=== PATIENT | female | born 1970 | race African-American/Black ===

== ENCOUNTER 2020-02-15 12:09 | Emergency (ER) | payer SELFPAY ==
[~2020-02-15] VITALS: Ht 180.3 cm; Wt 148.8 kg
[2020-02-15 12:25] VITALS: BP 145/89
--- NOTE | 2020-02-15 13:13 | Emergency Room Report ---
History of Present Illness General Chief Complaint: Upper Respiratory Illness Source: Patient Present Illness HPI 49-year-old female with history of COPD and heavy tobacco smoker complaining of over 1 week of cough and congestion coupled with shortness of breath posttussive. Patient refuses chest x-ray. Patient reports green phlegm is coming now and is requesting to get cough syrup as well as albuterol antibiotics. Patient is afebrile, oxygenation within normal limits. Denies any chest pain at this time. Denies headache and dizziness, loss of taste, smell, abdominal pain, nausea vomiting diarrhea. Has not taken medication for symptom relief. Denies . 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 COVID-19 Screening: Negative COVID-19 COVID-19 Testing Source: [employer] Patient History Past Medical History: see triage record Past Surgical History: none Pertinent Family History: none Social History: Reports: smoking Last Menstrual Period: na Now: No Immunizations: UTD Reviewed Nursing Documentation: PMH: Agreed; PSxH: Agreed Nursing Documentation-PMH Past Medical History: No History, Except For Hx Asthma: Yes Hx COPD: Yes Review of Systems All Other Systems: negative except mentioned in HPI Physical Exam Vital Signs Date Time Temp Pulse Resp B/P (MAP) Pulse Ox O2 Delivery O2 Flow Rate FiO2 02/15/20 12:20 98.4 87 18 145/89 (107) 97 Room Air Sp02 EP Interpretation: reviewed, normal General Appearance: no apparent distress, alert, GCS 15, non-toxic Head: normocephalic, atraumatic Eyes: bilateral eye normal inspection, bilateral eye PERRL ENT: hearing grossly normal, normal pharynx, no angioedema, normal voice Neck: full range of motion, supple/symm/no masses Respiratory: chest non-tender, lungs clear, normal breath sounds, no rhonchi, speaking full sentences Cardiovascular #1: regular rate, rhythm, no edema Gastrointestinal: normal bowel sounds, non tender, soft, non-distended, no guarding, no rebound Genitourinary: no CVA tenderness Musculoskeletal: back normal Neurologic: alert, motor strength/tone normal, oriented x3, sensory intact, responsive, speech normal Psychiatric: judgement/insight normal, memory normal, mood/affect normal, no suicidal/homicidal ideation Skin: no rash Lymphatic: no adenopathy Medical Decision Making PA Attestation All diagnoses and treatment plans were reviewed and discussed with my supervising physician Dr. Cuellar Diagnostic Impression: Primary Impression: Upper respiratory infection Additional Impression: COPD (chronic obstructive pulmonary disease) ER Course 49-year-old female with history of COPD and heavy tobacco smoker complaining of over 1 week of cough and congestion coupled with shortness of breath posttussive. Patient refuses chest x-ray. Patient reports green phlegm is coming now and is requesting to get cough syrup as well as albuterol antibiotics. Patient is afebrile, oxygenation within normal limits. Denies any chest pain at this time. Denies headache and dizziness, loss of taste, smell, abdominal pain, nausea vomiting diarrhea. Has not taken medication for symptom relief. Denies . Patient also reports that she got tested for COVID a week ago and she was negative Ddx considered but are not limited to: bronchitis, PNA, URI viral, bacterial bronchitis Vital signs: are WNL, pt. is afebrile H&PE are most consistent with: Upper respiratory infection, COPD ORDERS: Azithromycin, albuterol, Phenergan with codeine, prednisone ED INTERVENTIONS: None required at this time. DISCHARGE: At this time pt. is stable for d/c to home. Will provide printed patient care instructions, and any necessary prescriptions. Care plan and follow up instructions have been discussed with the patient prior to discharge. Patient take medication as directed, follow primary doctor, if worsening symptoms return to the emergency room Last Vital Signs Date Time Temp Pulse Resp B/P (MAP) Pulse Ox O2 Delivery O2 Flow Rate FiO2 02/15/20 12:25 87 18 Room Air 02/15/20 12:25 98.4 145/89 97 Disposition: HOME, SELF-CARE Condition: Stable Scripts Promethazine HCl/Codeine (Prometh-Codein 6.25-10 mg/5 ml) 5 Ml Syrup 5 ML PO BID, #240 ML Prov: Bala Piper 02/15/20 Prednisone* (PREDNISONE*) 20 Mg Tablet 40 MG ORAL DAILY for 5 Days, #10 TAB Prov: Bala Piper 02/15/20 Azithromycin* (ZITHROMAX*) 250 Mg Tablet 250 MG ORAL DAILY, #6 TAB 0 Refills Take two tables once daily for 1 day, then one tablet once daily for 4 days. Prov: Bala Piper 02/15/20 Referrals: NOT CHOSEN IPA/,REFERRING (PCP) Patient Instructions: Upper Respiratory Infection, Adult Additional Instructions: Take medication as directed, follow primary doctor, if worsening symptoms return to emergency Bala Piper February 15, 2020 13:13
[2020-02-15] MEDS ORDERED: PROMETH-CODEIN 65 ML PO (13:15)
[2020-02-15] MEDS ORDERED: ZITHROMAX250 MG ORAL (13:15)
[2020-02-15] MEDS ORDERED: PREDNISONE20 MG ORAL (13:15)
[2020-02-15 13:29] VITALS: BP 140/84
== END 2020-02-15 13:29 | disposition home or self-care (01) ==
LOC: EMR 12:35
DX: J06.9 Acute upper respiratory infection, unspecified (principal); J44.9 Chronic obstructive pulmonary disease, unspecified; R05 Cough; Z88.8 Allergy status to other drugs, medicaments and biological substances
CPT/HCPCS: 99281